=== PATIENT | female | born 1960 | race Asian ===

== ENCOUNTER → 2017-04-05 | Outpatient (CLI) | payer BC ==
[~2017-04-05] MED LIST: ALBUAER2 INH; AMIODARONE
--- NOTE | 2017-04-06 16:00 | MAMMOGRAPHY REPORT ---
BILATERAL DIGITAL SCREENING MAMMOGRAM TOMOSYNTHESIS WITH CAD: 04/05/2017 CLINICAL HISTORY: Routine screening. Patient has no complaints. TECHNIQUE: Breast tomosynthesis in addition to standard 2D mammography was performed. Current study was also evaluated with a Computer Aided Detection (CAD) system. COMPARISON: Comparison is made to exams dated: 04/13/2016 mammogram, 04/01/2016 mammogram, 12/05/2014 m ammogram, 09/13/2014 mammogram, 05/22/2013 mammogram, and 05/18/2012 mammogram - [facility] enter. BREAST COMPOSITION: The tissue of both breasts is extremely dense, which lowers the sensitivity of m ammography. FINDINGS: A linear scar marker overlies the upper outer quadrant of the left breast. There is a stab le ribbon shaped metallic biopsy marker in the 3:00 right breast. Calcifications in the left breast have decreased compared to the 04/01/2016 mammograms. There are 2 stable groupings of somewhat retic ular microcalcifications in the medial middle and posterior right breast, which are probably benign. Given that they have not changed in one year, it seems reasonable to reassess at time of next annual screening mammogram, as the patient failed follow-up for a recommended six-month follow-up based on the 04/13/2016 diagnostic mammogram report. No new suspicious mass, architectural distortion or clus ter of microcalcifications is seen. IMPRESSION: ACR BI-RADS CATEGORY 1: NEGATIVE Stable benign-appearing grouped microcalcifications in the right medial breast. No mammographic evid ence of malignancy bilaterally. A 1 year screening mammogram is recommended. The patient will recei ve written notification of the results. Approximately 10% of breast cancers are not detected with mammography. A negative mammographic report should not delay biopsy if a clinically suggestive mass is present. Juliana Toscano M.D. ay/:04/05/2017 18:33:59 Physician Allergist Immunologist: Corazon MAGANA)(Denzel)(KAMALJIT), [facility] letter sent: Normal 1/2 BI-RADS Code: ACR BI-RADS Category 1: Negative
== END | disposition home or self-care (01) ==
LOC: C.MAMM 09:10
PROVIDERS: ATTEND Obstetrics & Gynecology
DX: Z12.31 Encounter for screening mammogram for malignant neoplasm of breast (principal)

== ENCOUNTER → 2017-06-27 | Outpatient (CLI) | payer BC | END | disposition home or self-care (01) | LOC: C.PAPS 11:52 | PROVIDERS: ATTEND Obstetrics & Gynecology | DX: Z01.419 Encounter for gynecological examination (general) (routine) without abnormal findings (principal) ==

== ENCOUNTER → 2017-08-22 | Outpatient (CLI) | payer OTHER | END | disposition home or self-care (01) | LOC: C.MAMM 14:36 | PROVIDERS: ATTEND Nurse Practitioner Family | DX: Z11.59 Encounter for screening for other viral diseases (principal); M85.88 Other specified disorders of bone density and structure, other site ==

== ENCOUNTER → 2018-04-07 | Outpatient (CLI) | payer OTHER ==
--- NOTE | 2018-04-10 13:56 | MAMMOGRAPHY REPORT ---
BILATERAL DIGITAL SCREENING MAMMOGRAM TOMOSYNTHESIS WITH CAD: 04/07/2018 CLINICAL HISTORY: Routine screening. Patient has no complaints. TECHNIQUE: Breast tomosynthesis in addition to standard 2D mammography was performed. Current study w as also evaluated with a Computer Aided Detection (CAD) system. COMPARISON: Comparison is made to exams dated: 04/05/2017 mammogram, 04/13/2016 mammogram, 04/01/2016 m ammogram, 12/05/2014 mammogram, 09/13/2014 mammogram, and 05/22/2013 mammogram - [facility] enter. BREAST COMPOSITION: The tissue of both breasts is extremely dense, which lowers the sensitivity of ma mmography. FINDINGS: No suspicious masses, calcifications, or areas of architectural distortion are noted in either breast . There has been no significant interval change compared to prior exams. A biopsy clip is again note d within the right medial breast. Bilateral benign-appearing calcifications are not significantly ch anged. IMPRESSION: ACR BI-RADS CATEGORY 2: BENIGN There is no mammographic evidence of malignancy. A 1 year screening mammogram is recommended.( [id number]) The patient will receive written notification of the results. Some breast cancers are not detected with mammography. A negative mammographic report should not deangelo y biopsy if a clinically suggestive mass is present. Carli Rojas M.D. /:04/07/2018 15:15:39 Saw Man: RT Karime(R)(M), [facility] letter sent: Normal 1/2 BI-RADS Code: ACR BI-RADS Category 2: Benign
== END | disposition home or self-care (01) ==
LOC: C.MAMM 09:06
PROVIDERS: ATTEND Obstetrics & Gynecology
DX: Z12.31 Encounter for screening mammogram for malignant neoplasm of breast (principal)